=== PATIENT | female | born 1945 | race Caucasian/White ===

== ENCOUNTER → 2018-05-28 | Outpatient (CLI) | payer OTHER ==
[~2018-05-28] MED LIST: ASPI-1197 PO; BIOT25008 PO; CALC600T12 PO; CHOL200074 PO; CRAN500C2 PO; DILT240C3 PO; ESCI10TA54 PO; FURO40TA5 PO; LEVO500T2 PO; LISI-613 PO; POTA10TA11 PO; PRAV20TA4 PO; UBID100C10 PO
== END | disposition home or self-care (01) ==
LOC: OIH 14:00
PROVIDERS: ATTEND Family Medicine
DX: Z13.6 Encounter for screening for cardiovascular disorders (principal); R53.83 Other fatigue
CPT/HCPCS: 75571

== ENCOUNTER 2018-06-30 09:00 | Day surgery (SDC) | payer OTHER ==
[~2018-06-30] VITALS: Ht 149.9 cm; Wt 54.0 kg
[~2018-06-30 09:00] MED LIST changes: -DILT240C3 PO; +DILT240C50 PO; +GING550C5 PO; -LEVO500T2 PO; +METO-408 PO; +SODIUM CHLORIDE 0.9% 1000ML 1,000 ML IV ONE
[2018-06-30 10:16] VITALS: BP 148/56
[2018-06-30] MEDS ORDERED: PROPOFOL 10 MG/ML 20ML VIAL IV ONE ×2 (11:35→12:18)
[2018-06-30] MEDS ORDERED: GLYCOPYRROLATE 0.2 MG/ML 5 ML VIAL ONE (11:35)
[2018-06-30] MEDS ORDERED: LIDOCAINE HCL-MPF 2% 5ML VIAL ONE (11:36)
[2018-06-30 12:39] VITALS: BP 140/63
[2018-06-30 12:44] VITALS: BP 142/65
[2018-06-30 12:49] VITALS: BP 148/69
== END 2018-06-30 13:19 | disposition home or self-care (01) ==
LOC: ENDO 09:00 → DAH 09:00 → ENDO 13:19
PROVIDERS: ATTEND Internal Medicine Gastroenterology
DX: D12.2 Benign neoplasm of ascending colon (principal); D12.0 Benign neoplasm of cecum; K63.5 Polyp of colon; K29.50 Unspecified chronic gastritis without bleeding; I12.9 Hypertensive chronic kidney disease with stage 1 through stage 4 chronic kidney disease, or unspecified chronic kidney disease; N18.9 Chronic kidney disease, unspecified; N17.9 Acute kidney failure, unspecified; I25.10 Atherosclerotic heart disease of native coronary artery without angina pectoris; K21.9 Gastro-esophageal reflux disease without esophagitis; Z90.49 Acquired absence of other specified parts of digestive tract; K63.89 Other specified diseases of intestine; Z98.84 Bariatric surgery status; Z98.49 Cataract extraction status, unspecified eye; I21.3 ST elevation (STEMI) myocardial infarction of unspecified site; E78.5 Hyperlipidemia, unspecified; Z98.890 Other specified postprocedural states; Z90.710 Acquired absence of both cervix and uterus; Z79.899 Other long term (current) drug therapy; Z88.8 Allergy status to other drugs, medicaments and biological substances; M85.80 Other specified disorders of bone density and structure, unspecified site
CPT/HCPCS: 43239; 45380; 45385; 88305; 93005; A4606; J2704 ×2; J3490 ×2; J7030

== ENCOUNTER → 2023-05-28 | Outpatient (CLI) | payer OTHER, MEDICARE ==
[~2023-05-28] MED LIST changes: +CALC-1125 PO; -CALC600T12 PO; +ESCI-8 PO; -ESCI10TA54 PO; +IOHEXOL 350 MG/ML 100ML INFUS..BTL IV ONE; -LISI-613 PO; +LISI20TA24 PO; +POTA-183 PO; -POTA10TA11 PO; -SODIUM CHLORIDE 0.9% 1000ML 1,000 ML IV ONE
== END | disposition home or self-care (01) ==
LOC: RAH 09:00
PROVIDERS: ATTEND Internal Medicine Cardiovascular Disease
DX: I25.10 Atherosclerotic heart disease of native coronary artery without angina pectoris (principal)
CPT/HCPCS: 75574; Q9967